=== PATIENT | female | born 1980 | race Caucasian/White ===

== ENCOUNTER 2019-11-10 15:14 | Emergency (ER) | payer OTHER, SELFPAY ==
--- NOTE | 2019-11-10 16:29 | PC.NURSE ---
Pt to the intake desk stating that she is unable to wait any longer and ambulated to the exit with no difficulty.
== END 2019-11-10 16:30 | disposition left against medical advice (07) ==
LOC: ANHED 16:38
PROVIDERS: PCP Internal Medicine
DX: M54.2 Cervicalgia (principal)
CPT/HCPCS: 99199

== ENCOUNTER 2019-11-15 14:58 | Outpatient (CLI) | payer OTHER, SELFPAY ==
--- NOTE | ~2019-11-15 | XR_ITS ---
XR shoulder RT min 2V DATE: 11/15/2019 15:29 INDICATION: Right shoulder pain. No known injury. TECHNIQUE: 4 views COMPARISON: None FINDINGS: No fracture or dislocation, periosteal reaction or bone destruction or abnormal soft tissue calcification. IMPRESSION: Negative Reviewed, dictated and finalized at location A. IMPRESSION: Negative
--- NOTE | ~2019-11-15 | XR_ITS ---
XR clavicle RT DATE: 11/15/2019 15:30 INDICATION: Right clavicle, shoulder pain TECHNIQUE: AP and angled AP views COMPARISON: None FINDINGS: No fracture, dislocation or periosteal reaction or bone destruction. IMPRESSION: Negative Reviewed, dictated and finalized at location A. IMPRESSION: Negative
== END 2019-11-15 14:59 | disposition home or self-care (01) ==
PROVIDERS: PCP Internal Medicine; Visit Provider Clinical Nurse Specialist
DX: M79.603 Pain in arm, unspecified (principal)
CPT/HCPCS: 73000; 73030